=== PATIENT | female | born 1985 | race African-American/Black ===

== ENCOUNTER 2022-08-29 01:47 | Emergency (ER) | payer MEDICAID ==
[~2022-08-29] VITALS: Ht 157.5 cm; Wt 52.0 kg
[2022-08-29] MEDS ORDERED: TraMADol HCL 50 MG TABLET PO ONE (03:00)
[2022-08-29] MEDS ORDERED: PENICILLIN V POTASSIUM 500 MG TABLET PO ONE (03:00)
[2022-08-29] MEDS ORDERED: PENI500T2 PO (03:27)
[2022-08-29] MEDS ORDERED: TRAM-559 PO (03:28)
[2022-08-29 04:00] VITALS: BP 121/65
== END 2022-08-29 04:58 | disposition home or self-care (01) ==
LOC: EMS 01:49
DX: K03.81 Cracked tooth (principal); F17.210 Nicotine dependence, cigarettes, uncomplicated; Z98.890 Other specified postprocedural states; Z88.6 Allergy status to analgesic agent
CPT/HCPCS: 99283